=== PATIENT | female | born 1955 | race Two or more races ===

== ENCOUNTER → 2016-11-12 | Outpatient (CLI) | payer OTHER ==
--- NOTE | 2016-11-14 09:31 | RAD ---
DATE: 11/12/2016 EXAM: DIGITAL SCREEN BILAT W/CAD HISTORY: Routine screening COMPARISON: 03/28/2015 This study was interpreted with the benefit of Computerized Aided Detection (CAD). FINDINGS: Breast Density: SCATTERED The breast parenchyma shows scattered fibroglandular densities. Breast parenchyma level B. There are no dominant suspicious masses, suspicious microcalcifications or evidence of architectural distortion. IMPRESSION: Negative mammogram. BI-RADS CATEGORY: 1 NEGATIVE RECOMMENDED FOLLOW-UP: 12M 12 MONTH FOLLOW-UP PQRS compliance statement: Patient information was entered into a reminder system with a target due date 11/12/2017 for the next mammogram. Mammography is a sensitive method for finding small breast cancers, but it does not detect them all and is not a substitute for careful clinical examination. A negative mammogram does not negate a clinically suspicious finding and should not result in delay in biopsying a clinically suspicious abnormality. "Our facility is accredited by the [employer] Mammography [employer]."
== END | disposition home or self-care (01) ==
LOC: MAMMO 08:16
PROVIDERS: ATTEND Family Medicine
DX: Z12.31 Encounter for screening mammogram for malignant neoplasm of breast (principal)
CPT/HCPCS: G0202; 77067

== ENCOUNTER → 2021-09-01 | Outpatient (CLI) | payer OTHER ==
--- NOTE | 2021-09-01 16:33 | RAD ---
Digital Mammogram Bilateral History: Routine screening Technique: 2-D digital CC and MLO views were obtained. CAD - computer aided detection was utilize d. Comparison: Mammograms from 08/25/2018, 11/12/2016, 03/28/2015.. Findings: Breast Tissue Density B : There are scattered areas of fibroglandular density There is a faint group of calcifications in the 12:30 position of the right breast at posterior depth , about 8 cm from the nipple. These measure approximately 5 mm in maximum dimension. No other abnorma l groups of calcifications are seen. There are no suspicious masses or areas of architectural distort ion. Impression: Very small group of calcifications in the 12:30 position of the right breast. Further evaluation with the diagnostic right mammogram is recommended. Assessment: BI-RADS 0. Incomplete. Additional imaging is recommended. Recommendation: Diagnostic right mammogram. The patient will receive a letter with the results in the mail. Patient information will be entered i nto the mammography reminder system with a target recall date for the next mammogram. A reminder jorge er will be generated. Electronically signed by: Yue Benoit MD (09/01/2021 4:31 PM) [id number]
== END ==
LOC: MAMMO 07:41
PROVIDERS: ATTEND Family Medicine
DX: Z12.31 Encounter for screening mammogram for malignant neoplasm of breast (principal)
CPT/HCPCS: 77067

== ENCOUNTER → 2021-09-08 | Outpatient (CLI) | payer OTHER ==
--- NOTE | 2021-09-08 09:42 | RAD ---
DIAGNOSTIC RIGHT BREAST MAMMOGRAM TECHNIQUE: Indication right CC and MLO views INDICATION: Callback for right breast calcifications. COMPARISON: 09/11/2021, 08/25/2018, 11/12/2016 FINDINGS: Breast Density: Category B: There are scattered fibroglandular densities. Spot magnification views redemonstrated small group of amorphous calcifications in the right upper in ner breast posterior third. No architectural distortion suspicious masses. IMPRESSION: 1. Small group of amorphous calcifications right upper inner breast posterior third. ASSESSMENT: BI-RADS 4: Suspicious for Malignancy. RECOMMENDATION: Stereotactic biopsy. The findings and impression were discussed person with the patient. In order for stereotactic biopsy will be obtained from the patient's provider and the patient will be scheduled for stereotactic biops y. The facility will notify the patient of the results via mail. Patient information will be entered int o the mammography reminder system with a target recall date for the next mammogram. A reminder letter will be generated by the facility. Electronically signed by: Fernando Hu MD (09/08/2021 9:40 AM) [id number]
== END ==
LOC: MAMMO 08:07
PROVIDERS: ATTEND Family Medicine
DX: R92.1 Mammographic calcification found on diagnostic imaging of breast (principal)
CPT/HCPCS: 77065

== ENCOUNTER → 2021-09-22 | Outpatient (CLI) | payer OTHER ==
[~2021-09-22] MED LIST: LIDOCAINE 1% Multi-Dose 20 ML VIAL. INJ ONE; LIDOCAINE 2%/EPI 1:100,000 20 ML VIAL. INJ ONE
--- NOTE | 2021-09-22 11:35 | RAD ---
EXAM: 1. STEREOTACTICALLY GUIDED VACUUM ASSISTED RIGHT BREAST CORE BIOPSY. 2. POSTCLIP DIGITAL RIGHT MAMMOGRAPHY. 3. SPECIMEN RADIOGRAPH. HISTORY: Right breast microcalcifications. Stereotactic biopsy is requested. FINDINGS: The procedure and its risks and benefits were discussed with the patient. Risks discussed i ncluded, but were not limited to, pain, infection, bleeding and need for repeat biopsy. The patient p rovided verbal and written consent. A timeout procedure was performed. The target calcifications superomedially in the posterior third were localized stereotactically. The overlying skin was sterilely prepped and infiltrated with 1% lidocaine for local anesthesia. The deep er soft tissues were infiltrated with lidocaine with epinephrine for anesthesia and hemostasis. A 9 g auge vacuum-assisted core biopsy system was advanced to the target under stereotactic guidance. 8 cor e biopsy specimens were obtained. A specimen radiograph demonstrates the target calcifications within the specimen. A postbiopsy clip was placed and postoperative images were obtained. Instrumentation w as withdrawn and pressure held and hemostasis. A sterile dressing was placed. There were no immediate complications. Postclip digital right mammography was obtained in CC and MLO projections and interpreted on a [employer] workstation. The postbiopsy clip corresponds with the target lesion exactly on the CC projection. The clip is 1-2 cm superior to the expected prior location of the target calcifications on the MLO p rojection. Part of the difference may be projectional in comparison ML and MLO images. There are mild postprocedural changes. IMPRESSION: 1. Successful stereotactically guided vacuum assisted core biopsy of right breast microcalcifications with clip placement. 2. The target calcifications are included on the specimen radiograph. 3. Postclip mammography demonstrates the postbiopsy clip 1-2 cm superior to the expected location of the target calcifications, though there may be projectional differences. Electronically signed by: Renny Joyner MD (09/22/2021 11:33 AM) [id number]
--- NOTE | 2021-09-24 09:20 | PATHOLOGY ---
[facility] Accession Number: [id number] . 01 Material submitted: . breast - RIGHT BREAST TISSUE . 01 Clinical history: . CALCIFICATIONS LEFT BREAST . 02 Diagnosis: Breast tissue, right breast core biopsies: - Ductal carcinoma in situ, papillary/cribriform type, low-grade, focal. - Proliferative fibrocystic changes with focal florid ductal epithelial hyperplasia. - Sclerosing adenosis, multifocal. - Calcifications identified. (JPM:pit; 09/23/2021) . [facility] 09/24/2021 0815 Local . 02 Comment: Sections of the right breast core biopsy shows focal low-grade ductal carcinoma in situ of cribriform and papillary type. There are associated calcifications. The largest focus measures 4 mm in greatest dimension. The breast biopsy otherwise shows proliferative fibrocystic changes with focal florid ductal epithelial hyperplasia and multifocal sclerosing adenosis. There are focal calcifications associated with these changes. There is no evidence of invasive carcinoma. Breast prognostic studies are being obtained, the results of which will be reported separately. The case is also examined by Dr. Lara, who concurs with the diagnosis. (JPM:pit; 09/23/2021) . 02 Electronically signed: . Ward Snyder MD, Pathologist NPI- [id number] . 01 Gross description: . The specimen is received in formalin, labeled "Roxy Moore, right breast tissue". Received are 9, evans-pink to yellow, lobulated, soft tissue cores, ranging in length from 1.3-5.0 cm, and ranging in diameter from 0.2-0.5 cm. The specimen is entirely submitted in cassettes A1 to A3. . The specimen is removed from the patient at 0920 and placed in formalin at 0925 on 09/22/2021. The specimen is removed from formalin at 2240 on . The specimen is in formalin for greater than 6 hours and less than 72 hours. (JGG; 09/22/2021) JGG/[facility] 09/23/2021 1259 Local . 02 Pathologist provided ICD-10: D05.11, N60.11, N62, N60.21 . 02 CPT . 856743 Specimen Comment: A courtesy copy of this report has been sent to [phone], [phone] Specimen Comment: [id number] Specimen Comment: Report sent to / DR AVENDAÑO Specimen Comment: A duplicate report has been generated due to demographic updates. Performed at: 01 [facility] [address] [facility] [address], [place] [id number] MD Vlad Rivers MD Phone: [phone] Performed at: 02 [facility] [address], [place] [id number] MD Ward Snyder MD Phone: [phone]
== END | disposition home or self-care (01) ==
LOC: MAMMO 07:37
PROVIDERS: ATTEND Family Medicine
DX: R92.0 Mammographic microcalcification found on diagnostic imaging of breast (principal); R92.8 Other abnormal and inconclusive findings on diagnostic imaging of breast
CPT/HCPCS: 19081; 77065; J3490; 88305; 88361